=== PATIENT | female | born 1965 | race Hispanic/Latino ===

== ENCOUNTER 2018-01-10 08:45 | Day surgery (SDC) | payer BC, OTHER ==
[~2018-01-10] VITALS: Ht 157.5 cm; Wt 53.0 kg
[~2018-01-10 08:45] MED LIST: SODIUM CHLORIDE 0.9% 1000ML 1,000 ML IV ONE
[2018-01-10 10:10] VITALS: BP 135/72
[2018-01-10] MEDS ORDERED: PROPOFOL 10 MG/ML 20ML VIAL IV ONE (11:26)
[2018-01-10 11:48] VITALS: BP 89/50
== END 2018-01-10 12:35 | disposition home or self-care (01) ==
LOC: DAH 08:45
PROVIDERS: ATTEND Internal Medicine Gastroenterology
DX: K59.00 Constipation, unspecified (principal); Z82.49 Family history of ischemic heart disease and other diseases of the circulatory system
CPT/HCPCS: 45378; A4606; J2704; J7030